=== PATIENT | male | born 1950 | race Caucasian/White ===

== ENCOUNTER 2018-03-02 01:04 | Emergency (ER) | payer OTHER ==
[~2018-03-02] VITALS: Ht 177.8 cm; Wt 103.0 kg
[~2018-03-02 01:04] MED LIST: ASPI81TA27 PO; ATOR40TA52 PO; CLOP75TA41 PO; ENAL2.5T PO; METO-169 PO; OMEP20CA74 OR
[2018-03-02 01:27] VITALS: BP 111/69
== END 2018-03-02 03:02 | disposition home or self-care (01) ==
LOC: ER 01:05
DX: H60.91 Unspecified otitis externa, right ear (principal); H66.91 Otitis media, unspecified, right ear; K21.9 Gastro-esophageal reflux disease without esophagitis; Z79.82 Long term (current) use of aspirin